=== PATIENT | male | born 1990 | race American Indian/Alaskan Native ===

== ENCOUNTER 2018-06-18 10:34 | Emergency (ER) | payer SELFPAY ==
[2018-06-18 10:59] VITALS: BP 110/70; PULSE 63; RESP 18; TEMP 97.7; O2SAT 100
--- NOTE | 2018-06-18 12:33 | C.PDOC ---
History Of Present Illness 28 y/o male, brought to ER by brother for psychiatric evaluation [place] Patient is not able to verbalize about the reason he is not coming home. Brother states that he talks to himself. Patient denies suicidal ideation, homicidal ideation,hallucinations, drug/ ETOH use, and history of psychiatric illnesses. Time Seen by Provider: 06/18/18 10:58 Chief Complaint (Nursing): Medical Clearance History Per: Patient History/Exam Limitations: no limitations Past Medical History Reviewed: Historical Data, Nursing Documentation, Vital Signs Vital Signs: Last Vital Signs Temp 97.7 F 06/18/18 10:55 Pulse 63 06/18/18 10:55 Resp 18 06/18/18 10:55 BP 110/70 06/18/18 10:55 Pulse Ox 100 06/18/18 10:55 - Medical History PMH: No Chronic Diseases Surgical History: No Surg Hx Family History: States: No Known Family Hx - Social History Hx Alcohol Use: No Hx Substance Use: No Review Of Systems Except As Marked, All Systems Reviewed And Found Negative. Constitutional: Negative for: Fever, Chills Psych: Negative for: Suicidal ideation Physical Exam - Physical Exam Appears: Non-toxic, No Acute Distress Skin: Normal Color, Warm, Dry Head: Atraumatic, Normacephalic Eye(s): bilateral: Normal Inspection Nose: Normal Oral Mucosa: Moist Neck: Supple Chest: Symmetrical Cardiovascular: Rhythm Regular Respiratory: Normal Breath Sounds, No Rales, No Rhonchi, No Wheezing Gastrointestinal/Abdominal: Normal Exam, Soft, No Tenderness, No Guarding, No Rebound Neurological/Psych: Oriented x3, Normal Speech ED Course And Treatment O2 Sat by Pulse Oximetry: 100 (RA) Pulse Ox Interpretation: Normal Medical Decision Making Medical Decision Making: Plan: --Labs --UA Updates: Patient has history of 2 ER visits for same complaint. 12:40 Patient denies SI/HI. No auditory or visual hallucinations. Crisis saw patient, he is AAOX3 and able to make decisions- states that he does not believe anything is wrong and does not want any sort of treatment/intervention. Patient has been cleared by CRISIS. Patient will be discharged with outpatient referral to [facility]. Patient and brother verbalize understanding of this plan. Disposition - Disposition Disposition: HOME/ ROUTINE Disposition Time: 12:40 Condition: GOOD Additional Instructions: MERY RAY, thank you for letting us take care of you today. Your provider was Radha Razo MD and you were treated for PSYCH EVAL. The emergency medical care you received today was directed at your acute symptoms. If you were prescribed any medication, please fill it and take as directed. It may take several days for your symptoms to resolve. Return to the Emergency Department if your symptoms worsen, do not improve, or if you have any other problems. Please contact your doctor or call one of the physicians/clinics you have been referred to that are listed on the Patient Visit Information form that is included in your discharge packet. Bring any paperwork you were given at discharge with you along with any medications you are taking to your follow up visit. Our treatment cannot replace ongoing medical care by a primary care provider outside of the emergency department. Thank you for allowing the Written team to be part of your care today. If you had an X-Ray or CT scan: A Radiologist will review the ED reading if any change in treatment is needed we will contact you. If you had a blood, urine, or wound culture: It will take several days for the results, if any change in treatment is needed we will contact you. If you had an STI test: It will take 48 hours for the results. Please call after 1 week if you have not heard back. Instructions: Screening for Depression Forms: [employer] (H[place]er) - Clinical Impression Clinical Impression: Medical assessment - Scribe Statement The provider has reviewed the documentation as recorded by the Yaima Altamirano Provider Attestation: All medical record entries made by the [place] were at my direction and personally dictated by me. I have reviewed the chart and agree that the record accurately reflects my personal performance of the history, physical exam, medical decision making, and the department course for this patient. I have also personally directed, reviewed, and agree with the discharge instructions and disposition.
== END 2018-06-18 12:54 | disposition home or self-care (01) ==
LOC: C.ER 10:34 → EDBD 10:34 → C.ER 12:54
DX: Z00.00 Encounter for general adult medical examination without abnormal findings (principal)